=== PATIENT | male | born 1955 | race Caucasian/White ===

== ENCOUNTER 2017-04-10 16:19 | Emergency (ER) | payer BC ==
[~2017-04-10] VITALS: Ht 188 cm; Wt 86.0 kg
[~2017-04-10 16:19] MED LIST: AMLODIPINE10 MG PO; LOPRESSOR 550 MG/TAB PO; MELOXICAM15 MG PO; METOPROL TAR50 MG PO; OMEPRAZOLE20 MG PO
[2017-04-10 16:44] LABS: HEMATOCRIT 46.1 % (39.0-50.0); HEMOGLOBIN 15.7 g/dl (14.0-18.0); IMMATURE GRANULOCYTES 0.3 % (0.0-1.0); MEAN CORPUSCULAR HGB 29.3 pG CALC (26.0-32.0); MEAN CORPUSCULAR HGB CONC 34.1 g/L CALC (32.0-36.0); NEUT# 7.43 thou/uL (1.82-7.42); RED BLOOD COUNT 5.36 mill/uL (4.70-6.10); RED CELL DISTRI WIDTH 12.9 % (11.5-15.5)
[2017-04-10 17:00] LABS: ALBUMIN 4.5 g/dL (3.2-5.0); BILIRUBIN, TOTAL 1.2 mg/dL (0.0-1.4); CALCIUM 9.3 mg/dL (8.4-10.2); CREATININE 1.5 mg/dL (0.7-1.3); POTASSIUM 3.9 mmol/l (3.5-5.1); TOTAL PROTEIN 7.5 g/dL (6.3-8.2)
[2017-04-10 17:13] LABS: URINE BILIRUBIN - DIPSTICK NEGATIVE (NEGATIVE); URINE BLOOD DIPSTICK TRACE-INTACT (NEGATIVE); URINE CLARITY CLEAR; URINE COLOR YELLOW; URINE GLUCOSE - DIPSTICK 100 mg/dL (NEGATIVE); URINE KETONE NEGATIVE (NEGATIVE); URINE LEUK ESTERASE NEGATIVE (NEGATIVE); URINE NITRITE - DIPSTICK NEGATIVE (Negative); URINE PROTEIN - DIPSTICK 30 mg/dL (NEG-TRACE); URINE SPECIFIC GRAVITY >=1.030
[2017-04-10 17:17] LABS: PROTHROMBIN TIME 10.7 SECONDS (9.0-12.5)
[2017-04-10 17:23] LABS: URINE WBC 0-2 WBC/hpf (0-5)
[2017-04-10 17:24] LABS: URINE SPERM FEW hpf (NONE-RARE)
[2017-04-10 18:53] VITALS: BP 150/76
== END 2017-04-10 18:46 | disposition left against medical advice (07) | DRG 69 ==
LOC: ED 16:19 → ED-I 17:46 → ED 18:46
PROVIDERS: Emergency Medicine
DX: G45.9 Transient cerebral ischemic attack, unspecified (principal); R42 Dizziness and giddiness; Z91.19 Patient's noncompliance with other medical treatment and regimen; R53.1 Weakness; Z86.73 Personal history of transient ischemic attack (TIA), and cerebral infarction without residual deficits; R00.0 Tachycardia, unspecified

== ENCOUNTER 2018-12-10 15:42 | Emergency (ER) | payer BC ==
[~2018-12-10] VITALS: Ht 188 cm; Wt 91.0 kg
[2018-12-10 16:05] LABS: GFR > 60 ML/MIN (>=60 (CALC)); GFR FOR AFR.AMER. > 60 ML/MIN (>=60 (CALC))
[2018-12-10 16:08] LABS: HEMATOCRIT 45.2 % (39.0-50.0); HEMOGLOBIN 15.1 g/dl (14.0-18.0); IMMATURE GRANULOCYTES 0.4 % (0.0-5.0); MEAN CELL VOLUME 87.4 fL CALC (80.0-100.0); MEAN CORPUSCULAR HGB 29.2 pG CALC (26.0-32.0); MEAN CORPUSCULAR HGB CONC 33.4 g/L CALC (32.0-36.0); NEUT# 6.51 thou/uL (1.82-7.42); RED BLOOD COUNT 5.17 mill/uL (4.70-6.10); RED CELL DISTRI WIDTH 12.4 % (11.5-15.5)
[2018-12-10 16:19] LABS: ALKALINE PHOSPHATASE 123 u/l (38-126); ANION GAP 17 (6-22 (CALC)); BILIRUBIN, TOTAL 0.9 mg/dL (0.0-1.4); BUN 12 mg/dL (8-23); BUN/CREATININE RATIO 13 (12-20 (CALC)); CARBON DIOXIDE 23 mmol/l (22-30); CHLORIDE 102 mmol/l (95-108); CREATININE 0.9 mg/dL (0.7-1.3); GFR > 60 ML/MIN (>=60 (CALC)); GFR FOR AFR.AMER. > 60 ML/MIN (>=60 (CALC)); POTASSIUM 3.9 mmol/l (3.5-5.1); SGOT/AST 34 u/l (19-48); SODIUM 138 mmol/l (137-146); TOTAL PROTEIN 6.9 g/dL (6.3-8.2)
[2018-12-10 16:22] LABS: PROTHROMBIN TIME 10.1 SECONDS (9.0-12.5)
[2018-12-10 16:44] VITALS: BP 160/72
== END 2018-12-10 17:30 | disposition short-term general hospital (02) | DRG 65 ==
LOC: ED 15:42
PROVIDERS: Emergency Medicine
DX: I63.9 Cerebral infarction, unspecified (principal); I69.351 Hemiplegia and hemiparesis following cerebral infarction affecting right dominant side; I69.928 Other speech and language deficits following unspecified cerebrovascular disease; R29.732 NIHSS score 32; R55 Syncope and collapse; R23.2 Flushing; F12.90 Cannabis use, unspecified, uncomplicated; F17.290 Nicotine dependence, other tobacco product, uncomplicated
CPT/HCPCS: J2997; Q9967

== ENCOUNTER 2019-02-04 21:29 | Emergency (ER) | payer BC ==
[~2019-02-04] VITALS: Ht 188 cm; Wt 90.0 kg
[2019-02-04 22:18] LABS: IMMATURE GRANULOCYTES 0.9 % (0.0-5.0); MEAN CELL VOLUME 84.6 fL CALC (80.0-100.0); MEAN CORPUSCULAR HGB CONC 34.3 g/L CALC (32.0-36.0); NEUT# 11.21 thou/uL (1.82-7.42); RED BLOOD COUNT 4.28 mill/uL (4.70-6.10); RED CELL DISTRI WIDTH 13.1 % (11.5-15.5)
[2019-02-04 22:19] LABS: HEMATOCRIT 36.2 % (39.0-50.0); HEMOGLOBIN 12.4 g/dl (14.0-18.0)
[2019-02-04 22:29] LABS: ALBUMIN 3.6 g/dL (3.2-5.0); BILIRUBIN, TOTAL 1.1 mg/dL (0.0-1.4); CREATININE 2.5 mg/dL (0.7-1.3); POTASSIUM 3.3 mmol/l (3.5-5.1)
[2019-02-04 23:05] VITALS: BP 168/88
[2019-02-04 23:09] LABS: ACT PARTIAL THROMBO TIME 30.3 SECONDS (20.0-32.5)
--- NOTE | 2019-02-06 07:51 | NUR ---
CALLED AND FAXED BLOOD CULTURE PRELIMINARY RESULTS:1 VAIL GROWING GRAM (-) RODS TO [facility] FAX# [phone]
== END 2019-02-04 23:05 | disposition short-term general hospital (02) | DRG 280 ==
LOC: ED 21:29
PROVIDERS: Emergency Medicine
DX: I21.4 Non-ST elevation (NSTEMI) myocardial infarction (principal); J18.9 Pneumonia, unspecified organism; N19 Unspecified kidney failure; I10 Essential (primary) hypertension; I48.91 Unspecified atrial fibrillation; I69.954 Hemiplegia and hemiparesis following unspecified cerebrovascular disease affecting left non-dominant side; F17.200 Nicotine dependence, unspecified, uncomplicated
CPT/HCPCS: J1644